=== PATIENT | female | born 1970 | race Caucasian/White ===

== ENCOUNTER 2019-09-07 08:35 | Emergency (ER) | payer OTHER ==
[~2019-09-07] VITALS: Ht 162.6 cm; Wt 88.0 kg
[2019-09-07 08:39] VITALS: Ht 162.6 cm; Wt 88.0 kg
[2019-09-07 10:00] VITALS: BP 122/86
== END 2019-09-07 10:00 | disposition home or self-care (01) ==
LOC: ED 08:35
DX: K64.9 Unspecified hemorrhoids (principal)

== ENCOUNTER 2020-04-02 16:43 | Emergency (ER) | payer OTHER, SELFPAY ==
[~2020-04-02] VITALS: Ht 160 cm; Wt 88.5 kg
[2020-04-02 17:12] VITALS: Ht 160 cm; Wt 88.5 kg
[2020-04-02 19:06] VITALS: BP 131/82
== END 2020-04-02 19:08 | disposition home or self-care (01) ==
LOC: ED 16:43
DX: J40 Bronchitis, not specified as acute or chronic (principal); Z03.818 Encounter for observation for suspected exposure to other biological agents ruled out
CPT/HCPCS: Q0092

== ENCOUNTER 2020-06-01 15:39 | Emergency (ER) | payer OTHER ==
[~2020-06-01] VITALS: Ht 162.6 cm; Wt 92.5 kg
[2020-06-01 16:33] VITALS: Ht 162.6 cm; Wt 92.5 kg
[2020-06-01 17:02] VITALS: BP 121/75
== END 2020-06-01 17:02 | disposition home or self-care (01) ==
LOC: ED 15:39
DX: R10.9 Unspecified abdominal pain (principal)